=== PATIENT | female | born 1960 | race Caucasian/White ===

== ENCOUNTER → 2017-02-04 | Outpatient (CLI) | payer BC ==
--- NOTE | ~2017-02-04 | MY11 ---
[facility] A Service of [facility] / [facility] RADIOLOGY TEXT RESULTS PATIENT: MICHAEL CRUZ LOCATION: [facility] : 56 UNIT #: [id number] AGE: [address]: Harry Dale MD SEX: F ORDER DR: [id number] [place] [id number] MR#: [id number] Acc #: [id number] NAME: MICHAEL CRUZ : 1960 SEX: F STUDY DATE/TIME: 02/04/2017 15:34 UNIT: [facility] ROOM: STUDY DESCRIPTION: MY Mammogram Screening Dig Radhames Attending Physician: Harry Dale M.D. Referring Physician: Harry Dale M.D. Ordering Physician: Harry Dale M.D. Primary Care Physician: Harry Dale M.D. MEDICAL IMAGING REPORT This report is preliminary unless electronic signature is present. EXAM Digital screening mammogram. DATE OF EXAM 02/04/2017 LOCATION [facility]. HISTORY 57-year-old woman positive family history, mother age 71. Annual screen. COMPARISON Comparison mammograms date to 09/01/2005, with most recent 01/30/2016. TECHNIQUE Digital imaging of each breast was completed utilizing screening protocol. Review includes FDA-approved CAD device. FINDINGS Breast parenchyma is heterogeneously dense with scattered residual parenchymal opacities in each breast. Subareolar duct prominence is also noted bilaterally. There are small circumscribed nodules identified in each breast. On the left breast, a marker is placed on a probable small sebaceous cyst in the left axillary location. I see no suspicious mass characteristics. There are no interval occurring microcalcifications and no architectural deformity. IMPRESSION Benign mammogram. Annual screening recommended. Patients over the age of 40 are entered into a reminder system with target due date for the next mammogram. A result letter will also be sent to the [facility] A Service of [facility] / [facility] RADIOLOGY TEXT RESULTS PATIENT: MICHAEL CRUZ LOCATION: [facility] : 56 UNIT #: [id number] AGE: [address]: Harry Dale MD SEX: F ORDER DR: patient. BIRADS: 2 Benign findings. Dictated by... Vasiliy Kang M.D. THIS IS AN ELECTRONICALLY VERIFIED REPORT Vasiliy Kang M.D. at 02/10/2017 12:03 PM ARTI/sourav TD: 02/04/2017 18:04 JOB #: [id number] MEDICAL IMAGING REPORT Page 1 of 1
== END | disposition home or self-care (01) ==
LOC: SMAM 15:10
DX: Z12.31 Encounter for screening mammogram for malignant neoplasm of breast (principal); Z80.3 Family history of malignant neoplasm of breast
CPT/HCPCS: G0202